=== PATIENT | female | born 1980 ===

== ENCOUNTER → 2024-03-30 | Outpatient (CLI) | payer OTHER ==
[2024-03-30 19:51] LABS: Alanine Aminotransfer (ALT/SGP 80 U/L (12-78); Albumin, Blood 3.5 g/dL (3.4-5.0); Albumin/Globulin Ratio 0.9 (0.8-1.8); Alk Phos 141 U/L (50-136); Anion Gap 9 mmol/L (3-11); Aspartate Aminotrans (AST/SGOT 42 U/L (12-37); Bilirubin, Direct 0.1 mg/dL (0.0-0.3); Bilirubin, Indirect 0.2 mg/dL (0.1-0.7); Bilirubin, Total 0.3 mg/dL (0.1-1.0); Blood Urea Nitrogen 12 mg/dL (8-24); Bun/Creatinine Ratio 23.7 (12.0-20.0); CHOL/HDL RATIO 5.1; CO2, Blood 25 mmol/L (21-32); Calcium, Blood 8.6 mg/dL (8.5-10.1); Chloride, Blood 105 mmol/L (98-108); Cholesterol 194 mg/dL (50-200); Creatinine, Blood 0.51 mg/dL (0.40-1.00); Globulin, Blood 3.9 g/dL (2.2-4.0); Glomerular Filtration Rate 120 (60-); Glucose, Blood 304 mg/dL (70-99); HDL Cholesterol 38 mg/dL (>39); LDL/HDL RATIO 3.1; Low Density Lipoprotein Chol 116 mg/dL (0-110); Phosphorus, Blood 3.7 mg/dL (2.5-4.9); Potassium, Blood 4.5 mmol/L (3.5-5.5); Sodium, Blood 134 mmol/L (136-145); Total Protein, Blood 7.4 g/dL (6.4-8.2); Triglycerides 199 mg/dL (30-160); Very Low Density Lipoprot Chol 39 mg/dL (6-32)
[2024-03-30 20:13] LABS: BASOPHILS ABSOLUTE AUTO 0.07 K/mm3 (0.00-0.23); BASOPHILS PERCENT AUTO 1 % (0-2); EOSINOPHILS ABSOLUTE AUTO 0.36 K/mm3 (0.00-0.68); EOSINOPHILS PERCENT AUTO 4 % (0-6); Hematocrit 44.7 % (33.0-51.0); Hemoglobin 15.1 g/dL (11.5-16.0); IMMATURE GRAN ABSOLUTE AUTO 0.17 K/mm3 (0.00-0.10); IMMATURE GRAN PERCENT AUTO 2 % (0-1); LYMPHOCYTES ABSOLUTE AUTO 3.33 K/mm3 (0.84-5.20); LYMPHOCYTES PERCENT AUTO 34 % (21-46); MONOCYTES ABSOLUTE AUTO 0.45 K/mm3 (0.16-1.47); MONOCYTES PERCENT AUTO 5 % (4-13); Mean Corpuscular HGB 29.8 pg (26.0-34.0); Mean Corpuscular HGB Conc 33.8 g/dL (31.5-36.5); Mean Corpuscular Volume 88 fL (80-100); NEUTROPHILS PERCENT AUTO 55 % (41-73); RDW Coefficient Variation 12.5 % (11.7-14.2); RDW Standard Deviation 40.1 fL (35.1-46.3); Red Blood Cell Count 5.07 M/mm3 (3.80-5.20); White Blood Cell Count 9.78 K/mm3 (4.00-11.30)
[2024-03-30 20:31] LABS: Mean Platelet Volume 11.2 fL (9.1-12.4); Platelet Count 277 K/mm3 (150-400)
== END | disposition home or self-care (01) ==
LOC: LAB SHORT 18:18 → LAB 18:18
PROVIDERS: Nurse Practitioner Family
DX: E11.42 Type 2 diabetes mellitus with diabetic polyneuropathy (principal); E11.52 Type 2 diabetes mellitus with diabetic peripheral angiopathy with gangrene; E11.59 Type 2 diabetes mellitus with other circulatory complications; E11.621 Type 2 diabetes mellitus with foot ulcer; L97.509 Non-pressure chronic ulcer of other part of unspecified foot with unspecified severity; R00.2 Palpitations
CPT/HCPCS: 80053; 80061; 82248; 83880; 84100; 85025

== ENCOUNTER → 2024-11-09 | Outpatient (CLI) | payer OTHER ==
[2024-11-09 19:38] LABS: BASOPHILS ABSOLUTE AUTO 0.05 K/mm3 (0.00-0.23); BASOPHILS PERCENT AUTO 1 % (0-2); EOSINOPHILS ABSOLUTE AUTO 0.32 K/mm3 (0.00-0.68); EOSINOPHILS PERCENT AUTO 3 % (0-6); Hemoglobin 15.1 g/dL (11.5-16.0); IMMATURE GRAN ABSOLUTE AUTO 0.03 K/mm3 (0.00-0.10); IMMATURE GRAN PERCENT AUTO 0 % (0-1); LYMPHOCYTES ABSOLUTE AUTO 3.17 K/mm3 (0.84-5.20); LYMPHOCYTES PERCENT AUTO 29 % (21-46); MONOCYTES PERCENT AUTO 5 % (4-13); Mean Corpuscular HGB Conc 33.6 g/dL (31.5-36.5); Mean Corpuscular Volume 89 fL (80-100); Mean Platelet Volume 10.5 fL (9.1-12.4); NEUTROPHILS ABSOLUTE AUTO 6.81 K/mm3 (1.96-9.15); NEUTROPHILS PERCENT AUTO 63 % (41-73); Platelet Count 338 K/mm3 (150-400); RDW Coefficient Variation 12.8 % (11.7-14.2); RDW Standard Deviation 42.1 fL (35.1-46.3); Red Blood Cell Count 5.04 M/mm3 (3.80-5.20); White Blood Cell Count 10.88 K/mm3 (4.00-11.30)
[2024-11-09 19:49] LABS: Alanine Aminotransfer (ALT/SGP 85 U/L (12-78); Albumin, Blood 3.4 g/dL (3.4-5.0); Albumin/Globulin Ratio 0.8 (0.8-1.8); Alk Phos 136 U/L (50-136); Anion Gap 12 mmol/L (3-11); Aspartate Aminotrans (AST/SGOT 35 U/L (12-37); Bilirubin, Direct <0.1 mg/dL (0.0-0.3); Bilirubin, Indirect Unable to Calculate mg/dL (0.1-0.7); Bilirubin, Total 0.2 mg/dL (0.1-1.0); Blood Urea Nitrogen 14 mg/dL (8-24); Bun/Creatinine Ratio 27.6 (12.0-20.0); CHOL/HDL RATIO 5.1; CO2, Blood 25 mmol/L (21-32); Chloride, Blood 104 mmol/L (98-108); Cholesterol 192 mg/dL (50-200); Creatinine, Blood 0.51 mg/dL (0.40-1.00); Globulin, Blood 4.2 g/dL (2.2-4.0); Glomerular Filtration Rate 120 (60-); Glucose, Blood 278 mg/dL (70-99); HDL Cholesterol 38 mg/dL (>39); Low Density Lipoprotein Chol 113 mg/dL (0-110); Phosphorus, Blood 3.2 mg/dL (2.5-4.9); Potassium, Blood 4.5 mmol/L (3.5-5.5); Sodium, Blood 136 mmol/L (136-145); Total Protein, Blood 7.6 g/dL (6.4-8.2); Triglycerides 204 mg/dL (30-160); Very Low Density Lipoprot Chol 40 mg/dL (6-32)
[2024-11-11 17:34] LABS: HIV 1,2 COMBO ANTIGEN/ANTIBODY Negative (Negative)
[2024-11-11 18:11] LABS: HEPATITIS C AB CIA INTERP Negative (Negative); HEPATITIS C ANTIBODY CIA INDEX 0.06 IV
== END ==
LOC: LAB 18:18 → LAB SHORT 18:18
PROVIDERS: Nurse Practitioner Family
DX: Z11.4 Encounter for screening for human immunodeficiency virus [HIV] (principal); Z11.59 Encounter for screening for other viral diseases; R10.9 Unspecified abdominal pain; E11.42 Type 2 diabetes mellitus with diabetic polyneuropathy; E11.51 Type 2 diabetes mellitus with diabetic peripheral angiopathy without gangrene; E11.52 Type 2 diabetes mellitus with diabetic peripheral angiopathy with gangrene; E11.59 Type 2 diabetes mellitus with other circulatory complications; E11.621 Type 2 diabetes mellitus with foot ulcer
CPT/HCPCS: 80053; 80061; 82248; 83880; 84100; 85025; 86803; 87077; 87086; 87186; 87389